=== PATIENT | male | born 1995 | race Native Hawaiian/Other Pacific Islander ===

== ENCOUNTER 2025-07-07 17:58 | Emergency (ER) | payer MEDICAID ==
[~2025-07-07] VITALS: Ht 175.3 cm; Wt 118.2 kg
[2025-07-07 18:06] VITALS: BP 117/74; PULSE 82; RESP 18; TEMP 97.5; O2SAT 98
[2025-07-07] MEDS ORDERED: ACET-3385 PO (18:11)
[2025-07-07] MEDS ORDERED: IBUP-1492 PO (19:04)
== END 2025-07-07 20:35 | disposition home or self-care (01) ==
LOC: EMS 17:58
DX: M77.31 Calcaneal spur, right foot (principal); M72.2 Plantar fascial fibromatosis; J45.909 Unspecified asthma, uncomplicated; Z79.899 Other long term (current) drug therapy; W19.XXXA Unspecified fall, initial encounter
CPT/HCPCS: 99283